=== PATIENT | male | born 1965 | race Caucasian/White ===

== ENCOUNTER 2018-04-19 12:21 | Day surgery (SDC) | payer OTHER ==
[2018-04-17 15:17] VITALS: BMI 24.0
[2018-04-19] MEDS ORDERED: ACETAMINOPHEN 1000 MG/100 ML VIAL (NON FORMULARY) IVPB ONE ×2 (12:29→17:30)
[2018-04-19] MEDS ORDERED: DEXTROSE 5%-0.45% SALINE 1,000 ML IV SCH (12:30)
[2018-04-19] MEDS ORDERED: IBUPROFEN 800 MG/8 ML IJ IVPB SCH (12:30)
--- NOTE | 2018-04-19 15:13 | HP ---
Satellite [facility] - Chief Complaint Chief Complaint: genital warts History of Present Illness: genital warts. here for laser fulguration History Source: Patient Limitations to Obtaining History: No Limitations - Past Medical History Allergies/Adverse Reactions: Allergies Allergy/AdvReac Type Severity Reaction Status Date / Time No Known Drug Allergies Allergy Verified 04/17/18 15:26 [employer]ATOR: No: Alzheimer's, CVA, Dementia, Migraine, Multiple Sclerosis, Peripheral Neuropathy, Parkinson's, Seizure, Syncope, TIA, Vertigo, Other Cardiovascular: No: AFIB, Aneurysm, Aortic Insufficiency, Aortic Stenosis, CAD, CHF, Deep Vein Thrombosis, HTN, Hyperlipdemia, MS, Mitral Insufficiency, Mitral Stenosis, Murmur, Pulmonary Hypertension, Other Gastrointestinal: No: Ascites, Cancer, Constipation, Crohn's Disease, Diverticulitis, Diverticulosis, Esophageal Varices, Gastritis, GERD, GI Bleed, Hemorrhoids, Hiatal Hernia, Inflamatory Bowel Disease, Irritable Bowel Disease, Pancreatitis, Peptic Ulcer Disease, Ulcerative Colitis, Other Hepatobiliary: No: Cirrhosis, Cholelithiasis, Cholecystitis, Choledocholithiasis , Hepatitis A, Hepatitis B, Hepatitis C, Other Renal/: No: Renal Failure, Renal Inusuff, BPH, Cancer, Hematuria, Hemodialysis , Neurogenic Bladder, Renal Calculi, UTI, Other Infectious Disease: No: AIDS, C-Diff, Herpes Zoster, HIV, MRSA, STD's, Tuberculosis, VREF, Other Musculoskeletal: No: Bursitis, Chronic low back pain, Hemiparesis, Hemiplegia, Osteoarthritis, Paraplegia, Other Dermatology: Yes: Other (genital warts) - Current Medications Current Medications: Home Medications Medication Instructions Recorded Acetaminophen/Caffeine [Excedrin 1 each PO PRN PRN 04/17/18 Tension Headache Cplt] Amlodipine Besylate 2.5 mg PO DAILY 04/17/18 Bacitracin - [Bacitracin Topical 1 applic TP BID #30 grams 04/19/18 Ointment -] Bismuth Tribromoph/Petrolatum 1 each TP BID #60 bandage 04/19/18 [Xeroform Petrolatum Dress] Satellite Physical Exam - Physical Examination Vital Signs: Vital Signs Period Temp Pulse Resp BP Sys/[place] Pulse Ox Last 24 Hr 97.8 F-97.8 F 76-76 18-18 144-144/84-84 99 General Appearance: Well Nourished, Well Developed, Alert & Oriented x3 ENT: Clear, No Discharge, No masses Lung: Clear to auscultation Heart: Regular rate & rhythm, Normal S1, Normal S2 Abdomen: Soft, No tenderness, No CVA Pelvic Exam: Other External Genitalia (genital warts) Satellite Impression/Plan - Impression/Plan Impression: genital warts Operative Procedure: CO2 laser fulguration of genital warts Date to be Performed: 04/19/18
[2018-04-19] MEDS ORDERED: MIDAZOLAM HCL 2 MG/2 ML SINGLE DOSE VIAL ONE (15:23)
[2018-04-19] MEDS ORDERED: SODIUM CHLORIDE 0.9% P/F 10 ML VIAL IJ ONE (15:36)
[2018-04-19] MEDS ORDERED: ceFAZolin SODIUM 1 GM VIAL ONE (15:36)
[2018-04-19] MEDS ORDERED: ceFAZolin SODIUM 1 GM VIAL IVPB ONE (15:39)
[2018-04-19] MEDS ORDERED: oxyCODONE HCL 5 MG TABLET PO PRN (16:26)
[2018-04-19] MEDS ORDERED: ONDANSETRON 4 MG/2 ML VIAL IVPUSH PRN (16:26)
[2018-04-19] MEDS ORDERED: PROMETHAZINE HCL 25 MG/1 ML VIAL IVPB PRN (16:26)
[2018-04-19] MEDS ORDERED: ACETAMINOPHEN INJECTION 100 ML IVPB ONE (16:27)
[2018-04-19] MEDS ORDERED: LACTATED RINGERS SOLUTION 1,000 ML IV SCH (16:30)
[2018-04-19 19:13] VITALS: BP 134/74; PULSE 65; TEMP 97.9
--- NOTE | 2018-04-20 09:29 | OP ---
DATE OF OPERATION: 04/19/2018 PREOPERATIVE DIAGNOSIS: Genital warts. POSTOPERATIVE DIAGNOSIS: Genital warts. PROCEDURE: CO2 laser fulguration extensive of genital warts. SURGEON: Quinten Hernandez MD ESTIMATED BLOOD LOSS: None. SPECIMENS: None. FINDINGS: Genital warts along the entire pubic area down to the base of the shaft of the penis, the scrotum, and on either side. PREOPERATIVE INDICATIONS: The patient is a 52-year-old male with extensive genital warts that extended up the pubis approximately 5 cm above the symphysis pubis extending down to the proximal shaft of the penis and various points along the scrotum and inner thigh. He comes for CO2 laser fulguration. DESCRIPTION OF PROCEDURE: The patient is brought to the OR and placed on the table in the supine position. He was given IV antibiotics and general anesthesia. The groin was prepped and draped sterilely. A time-out was performed. Using CO2 laser set at 10W, the condylomas were all fulgurated down to the skin. Again, an extensive area approximately 5 cm cephalad of the pubic symphysis and approximately 4 cm wide was fulgurated. Several, several warts were also fulgurated on the base of the penis. There were 2 warts on the scrotum and 2 warts on the inner thighs. These were all fulgurated. The patient tolerated the procedure well. The wound was dressed with Xeroform dressing and a Tegaderm. The patient was then woken up. [place] [id number]
== END 2018-04-19 18:10 | disposition home or self-care (01) ==
LOC: JASU-SURG 12:21
PROVIDERS: ATTEND Urology
PROC: 0V5SXZZ Destruction of Penis, External Approach (ICD-10-PCS; principal; 2018-04-19 14:00)
DX: A63.0 Anogenital (venereal) warts (principal)
CPT/HCPCS: 94760; J0131